=== PATIENT | female | born 1985 | race Caucasian/White ===

== ENCOUNTER → 2024-01-13 12:15 | Outpatient (REF) | payer BC, SELFPAY | LOC: HWWDC 12:15 | PROVIDERS: ATTENDING PHYSICIAN Advanced Practice Midwife; FAMILY PHYSICIAN Internal Medicine | DX: Z12.31 Encounter for screening mammogram for malignant neoplasm of breast (principal) | CPT/HCPCS: 77063; 77067 ==

== ENCOUNTER 2024-10-08 19:16 | Emergency (ER) | payer BC, SELFPAY ==
[2024-10-08 19:23] VITALS: BP 139/92
[2024-10-08 20:07] VITALS: BMI 31.8
[2024-10-08 20:09] VITALS: BP 122/96
--- NOTE | 2024-10-08 20:09 | ED.GENMED ---
History of Present Illness
General
Chief Complaint: Headache
Time Seen by Provider: 10/08/24 19:53
History of Present Illness
History of Present Illness:
39-year-old female history of migraines presenting with unequal pupils. Patient states that around 630 [address] was [address] in the car when she noticed that her right pupil was bigger than her left pupil. Patient states that she did not have a migraine
at the time but states that it feels how she does after she has a migraine. Patient denies any focal numbness, weakness, tingling, eye pain or visual changes. Patient states that her entire body feels 'weird' and that the lights are bothering her.
Patient denies any history of similar symptoms. Patient states that she has been more stressed today. Patient did not use any eye drops. Pt denies trauma to the eye.
Phy Exam
Physical Exam
Physical Exam:
General: Alert, no acute distress
Head: NCAT
Eyes: clear conjunctiva, right pupil 5mm, left pupil 3mm. Both reactive and round. EOMI
Neck: supple
Cardiac: regular rate and rhythm, no murmur
Lungs: clear to auscultation bilaterally. No wheezes, rales, or rhonchi. Speaking full unlabored sentences. No respiratory distress.
Abdomen: soft, nondistended nontender. No rebound or guarding.
MSK: no lower extremity edema bilaterally. No deformity
Skin: warm, dry
Neuro: Alert and oriented x3. Cranial nerves II through XII grossly intact no focal deficits. Normal finger-nose. 5-5 strength bilateral upper and lower extremities. Sensation intact throughout
Course
Orders/Labs/Results
Orders:
Orders
10/08/24 19:27
CT Head W/o Iv Contrast Urgent
Comment:
Reason For Exam: headache
Vital Signs
Initial and Last Documented VS:
Initial Vital Signs
Temp Pulse Resp BP Pulse Ox
98.3 F 112 20 139/92 99
10/08/24 19:23 10/08/24 19:23 10/08/24 19:23 10/08/24 19:23 10/08/24 19:23
Last Documented Vital Signs
Temp Pulse Resp BP Pulse Ox
98.3 F 112 20 121/85 98
10/08/24 19:23 10/08/24 19:23 10/08/24 19:23 10/08/24 22:00 10/08/24 22:00
MDM/Problems Addressed
Differential Diagnosis Includes:
physiological anisocoria, glaucoma, complex migraine
MDM/Problems Addressed:
39-year-old female history of migraines presenting with unequal pupils and light sensitivity she noticed 1 hour prior to arrival. Right pupil 5 mm, left pupil 3 mm but both are reactive and round. Extraocular movements intact. Otherwise
neurologically intact. CT head unremarkable. On reexamination, right pupil 4mm, left pupil 3mm otherwise neurologically intact. Right IOP 17. Pt states she feels better. Discussed results with patient at bedside. Concern for complex migraine vs
physiological anisocoria. Low suspicion for CN III palsy given extraocular movements intact, no ptosis. Advised to follow up with neurology. Discussed return precautions. Patient expressed verbal understanding.
*Critical Care Note
Total Time (30-74mins, 75-104mins- exclusive of procedures): Not Applicable
ED Attending Note
-
Portions of this chart may have been created with voice recognition software.� Occasional wrong word or��sound alike� substitutions may have occurred due to the inherent limitations of voice recognition software.
Discharge Plan
Departure
Patient Disposition: Home (Routine Discharge)
Date of Disposition: 10/08/24
Time of Disposition: 22:04
Patient with high blood pressure during this ER visit?: Yes
Discharge Problem:
Anisocoria
Instructions: Migraines (DC), BLOOD PRESSURE
Prescriptions:
No Action
semaglutide (weight loss) 0.25 mg/0.5 mL Pen Injector
0.25 mg SC QWEEK
Referrals:
Gabriela Sampson MD [Active] -
Jason Garcia MD [Family Provider] -
Activity Restrictions/Additional Instructions:
Follow up with neurology
Take Tylenol 975mg every 6 hours and/or ibuprofen 800mg every 8 hours as needed for headache
Return to the emergency department for visual changes, numbness, weakness, tingling or new/worsening symptoms
Interventions
Interventions:
*Risk Screen - Suicide Last Done: 10/08/24 20:09
*General Assessment Last Done: 10/08/24 19:23
*Neglect/Abuse Screening Last Done: 10/08/24 20:09
*ED- Fall Risk Assessment Last Done: 10/08/24 22:17
*ED COVID-19 Vaccine History Last Done: 10/08/24 20:08
*Nursing Disposition Last Done: 10/08/24 22:17
ED- Neurological Assessment Last Done: 10/08/24 20:10
Discharge Date and Time
Discharge Date/Time: 10/08/24 22:18
Print Language: [place]
[2024-10-08 20:19] VITALS: BP 130/95
[2024-10-08 21:03] VITALS: BP 120/81
[2024-10-08 22:00] VITALS: BP 121/85
== END 2024-10-08 22:18 | disposition home or self-care (01) ==
LOC: EMR 19:16
PROVIDERS: EMERGENCY PHYSICIAN Emergency Medicine; FAMILY PHYSICIAN Internal Medicine
DX: H57.02 Anisocoria (principal); R03.0 Elevated blood-pressure reading, without diagnosis of hypertension
CPT/HCPCS: 99284; 70450

== ENCOUNTER → 2025-07-12 13:13 | Outpatient (REF) | payer BC, SELFPAY | LOC: WDC 13:13 | PROVIDERS: ATTENDING PHYSICIAN Hospitalist | DX: Z12.31 Encounter for screening mammogram for malignant neoplasm of breast (principal) | CPT/HCPCS: 77063; 77067 ==